=== PATIENT | female | born 1960 | race African-American/Black ===

== ENCOUNTER 2022-03-17 06:01 | Day surgery (SDC) | payer BC ==
[2022-02-24 16:44] VITALS: BMI 42.9
[2022-03-17] MEDS ORDERED: FENTANYL CITRATE/PF 50 MCG/ML VIAL ONE (07:29)
[2022-03-17] MEDS ORDERED: BUPIVACAINE HCL/PF 0.5% (5MG/ML) 10 ML VIAL ONE (07:29)
[2022-03-17] MEDS ORDERED: MIDAZOLAM HCL 2 MG/2 ML SINGLE DOSE VIAL ONE (07:29)
[2022-03-17] MEDS ORDERED: BUPIVACAINE LIPOSOME/PF (EXPAREL) 266 MG/20 ML VIAL ONE (07:29)
[2022-03-17] MEDS ORDERED: LIDOCAINE HCL 2% (20ML MULTI-DOSE VIAL) ONE (08:57)
[2022-03-17] MEDS ORDERED: ceFAZolin SODIUM 1 GM VIAL ONE ×4 (09:14→22:55)
[2022-03-17] MEDS ORDERED: TRANEXAMIC ACID 1000 MG/10 ML VIAL ONE ×2 (09:17→12:06)
[2022-03-17] MEDS ORDERED: ONDANSETRON 4 MG/2 ML VIAL ONE (09:18)
[2022-03-17] MEDS ORDERED: DEXAMETHASONE SOD PHOSPHATE 4 MG/1 ML VIAL ONE (09:18)
[2022-03-17] MEDS ORDERED: PROPOFOL 20 ML ONE ×2 (09:26)
[2022-03-17] MEDS ORDERED: VANCOMYCIN 1,000 MG VIAL (RESTRICTED TO ID ONLY) ONE (09:29)
[2022-03-17] MEDS ORDERED: MAGNESIUM HYDROX 2400MG/30ML ORAL SUSPENSION 30 ML CUP PO PRN (12:28)
[2022-03-17] MEDS ORDERED: ONDANSETRON 4 MG/2 ML VIAL IVPUSH PRN (12:28)
[2022-03-17] MEDS ORDERED: ACETAMINOPHEN INJECTION 100 ML IVPB ONE (12:28)
[2022-03-17] MEDS ORDERED: KETOROLAC TROMETHAMINE 30 MG/1 ML VIAL ONE (12:28)
[2022-03-17] MEDS ORDERED: MAG HYDROX/AL HYDROX/SIMETH 30 ML UNIT-DOSE CUP PO PRN (12:28)
[2022-03-17] MEDS: KETOROLAC TROMETHAMINE 30 MG/1 ML VIAL IVPUSH SCH ×2 (12:30→18:30)
[2022-03-17] MEDS ORDERED: LACTATED RINGERS SOLUTION 1,000 ML IV SCH (12:30)
[2022-03-17] MEDS ORDERED: oxyCODONE HCL 5 MG TABLET PO PRN (13:00)
[2022-03-17] MEDS ORDERED: ACETAMINOPHEN 1000 MG/100 ML BAG IVPB ONE (14:00)
[2022-03-17] MEDS ORDERED: DEXTROSE 5%-WATER - 100 ML IVPB ONE ×2 (16:55→22:55)
[2022-03-17] MEDS: CEFAZOLIN 3 GM in DEXTROSE 5%-WATER - 100 ML IVPB SCH ×2 (17:12→23:07)
[2022-03-17] MEDS: ASPIRIN COATED 81 MG TABLET.EC PO SCH (23:03)
[2022-03-17] MEDS: SENNOSIDES/DOCUSATE COMBO (SENNA PLUS) TABLET (UD) PO SCH (23:04)
[2022-03-17] MEDS: CELECOXIB 200 MG CAPSULE PO SCH (23:04)
[2022-03-17] MEDS: ACETAMINOPHEN 500 MG TABLET (FP) PO SCH (23:04)
[2022-03-17] MEDS: oxyCODONE HCL 10 MG SUSTAINED ACTING TABLET PO SCH (23:05)
[2022-03-18] MEDS ORDERED: DEXTROSE 5%-WATER - 100 ML IVPB ONE (04:36)
[2022-03-18] MEDS ORDERED: ceFAZolin SODIUM 1 GM VIAL ONE (04:36)
[2022-03-18] MEDS: ACETAMINOPHEN 500 MG TABLET (FP) PO SCH ×4 (05:07→21:50)
[2022-03-18] MEDS: CEFAZOLIN 3 GM in DEXTROSE 5%-WATER - 100 ML IVPB SCH (05:08)
[2022-03-18 08:07] LABS: CALCIUM 8.4 mg/dl (8.5-10); CREATININE 0.9 mg/dl (0.55-1.3)
[2022-03-18 08:16] LABS: HEMATOCRIT 33.5 % (32.4-45.2); HEMOGLOBIN 11.3 G/dL (10.7-15.3); MCH 31.1 pg (25.7-33.7); MCHC 33.6 g/dl (32.0-36.0); MEAN CELL VOLUME 92.5 fl (80-96); MEAN PLT VOLUME 8.6 fl (7.5-11.1); PLATELET COUNT 251.7 10^3/uL (134-434); RBC 3.62 10^6/uL (3.60-5.2); RDW 13.9 % (11.6-15.6); WHITE BLOOD COUNT 12.8 10^3/uL (4.0-10.8)
[2022-03-18] MEDS: ASPIRIN COATED 81 MG TABLET.EC PO SCH ×2 (09:11→21:50)
[2022-03-18] MEDS: SENNOSIDES/DOCUSATE COMBO (SENNA PLUS) TABLET (UD) PO SCH ×2 (09:11→21:50)
[2022-03-18] MEDS: PANTOPRAZOLE 40 MG TABLET PO SCH (09:13)
[2022-03-18] MEDS: oxyCODONE HCL 10 MG SUSTAINED ACTING TABLET PO SCH ×2 (09:14→21:50)
[2022-03-18] MEDS: CELECOXIB 200 MG CAPSULE PO SCH ×2 (09:15→21:50)
[2022-03-18] MEDS: ATORVASTATIN CA 20 MG TABLET (FP) PO SCH (09:16)
[2022-03-18] MEDS ORDERED: PATIENT'S OWN MEDICATION (NON-FORMULARY) (Losartan/Hydrochlorothiazide [Losartan-Hctz 100- PO SCH (10:00)
[2022-03-18] MEDS: amLODIPine BESYLATE 10 MG TABLET (FP) PO SCH (11:07)
[2022-03-18] MEDS: LOSARTAN 50MG/HCTZ 12.5MG 1 TAB PO SCH (11:08)
[2022-03-19] MEDS: ACETAMINOPHEN 500 MG TABLET (FP) PO SCH ×4 (06:43→19:59)
[2022-03-19] MEDS: oxyCODONE HCL 5 MG TABLET PO PRN ×2 (06:43→19:32)
[2022-03-19 08:03] VITALS: TEMP 98.4
[2022-03-19 08:21] LABS: HEMATOCRIT 30.8 % (32.4-45.2); HEMOGLOBIN 10.6 G/dL (10.7-15.3); MCH 31.9 pg (25.7-33.7); MCHC 34.4 g/dl (32.0-36.0); MEAN CELL VOLUME 92.9 fl (80-96); MEAN PLT VOLUME 8.7 fl (7.5-11.1); PLATELET COUNT 226.1 10^3/uL (134-434); RBC 3.32 10^6/uL (3.60-5.2); RDW 13.9 % (11.6-15.6); WHITE BLOOD COUNT 11.9 10^3/uL (4.0-10.8)
[2022-03-19] MEDS: oxyCODONE HCL 10 MG SUSTAINED ACTING TABLET PO SCH (09:36)
[2022-03-19] MEDS: PANTOPRAZOLE 40 MG TABLET PO SCH (09:37)
[2022-03-19] MEDS: amLODIPine BESYLATE 10 MG TABLET (FP) PO SCH (09:37)
[2022-03-19] MEDS: CELECOXIB 200 MG CAPSULE PO SCH ×2 (09:38→19:59)
[2022-03-19] MEDS: ATORVASTATIN CA 20 MG TABLET (FP) PO SCH (09:39)
[2022-03-19] MEDS: ASPIRIN COATED 81 MG TABLET.EC PO SCH ×2 (09:39→19:59)
[2022-03-19] MEDS: SENNOSIDES/DOCUSATE COMBO (SENNA PLUS) TABLET (UD) PO SCH ×2 (09:40→19:58)
[2022-03-19] MEDS: LOSARTAN 50MG/HCTZ 12.5MG 1 TAB PO SCH (09:40)
[2022-03-19 14:10] VITALS: BP 126/43; PULSE 80
== END 2022-03-19 20:00 | disposition home or self-care (01) ==
LOC: FASUSAT 06:01 → FM/S 13:14 → FASUSAT 03-19 20:00
PROVIDERS: ATTEND Orthopaedic Surgery Orthopaedic Surgery of the Spine
PROC: 0SRD0J9 Replacement of Left Knee Joint with Synthetic Substitute, Cemented, Open Approach (ICD-10-PCS; principal; 2022-03-17 09:49)
DX: M17.12 Unilateral primary osteoarthritis, left knee (principal)
CPT/HCPCS: 27447; C1776; 36415; 73560-TC-LT-FY; 80048; 85027; 88305-TC; 88311-TC; 94760; 97010-GP; 97116-GP; 97161-GP

== ENCOUNTER 2022-08-04 06:29 | Day surgery (SDC) | payer BC ==
[2022-08-02 12:18] VITALS: BMI 42.5
[2022-08-04] MEDS ORDERED: MIDAZOLAM HCL 2 MG/2 ML SINGLE DOSE VIAL ONE (07:02)
[2022-08-04] MEDS ORDERED: PROPOFOL 60 ML ONE (07:02)
[2022-08-04] MEDS ORDERED: BUPIVACAINE LIPOSOME/PF (EXPAREL) 266 MG/20 ML VIAL ONE (08:06)
[2022-08-04] MEDS ORDERED: BUPIVACAINE HCL/PF 0.5% (5 MG/ML) 30 ML VIAL IJ ONE (08:06)
[2022-08-04] MEDS ORDERED: PROPOFOL 20 ML ONE ×3 (09:29→10:52)
[2022-08-04] MEDS ORDERED: ONDANSETRON 4 MG/2 ML VIAL ONE (09:45)
[2022-08-04] MEDS ORDERED: TRANEXAMIC ACID 1000 MG/10 ML VIAL ONE ×2 (09:45→11:10)
[2022-08-04] MEDS ORDERED: KETOROLAC TROMETHAMINE 30 MG/1 ML VIAL ONE (09:45)
[2022-08-04] MEDS ORDERED: PHENYLEPHRINE HCL 10 MG/1 ML SINGLE DOSE VIAL ONE (09:45)
[2022-08-04] MEDS ORDERED: VANCOMYCIN 1,000 MG VIAL (RESTRICTED TO ID ONLY) ONE (09:45)
[2022-08-04] MEDS ORDERED: ceFAZolin SODIUM 1 GM VIAL ONE ×2 (09:45→11:37)
[2022-08-04] MEDS ORDERED: DEXAMETHASONE SOD PHOSPHATE 4 MG/1 ML VIAL ONE (09:45)
[2022-08-04] MEDS ORDERED: MAGNESIUM HYDROX 2400MG/30ML ORAL SUSPENSION 30 ML CUP PO PRN (11:48)
[2022-08-04] MEDS ORDERED: MAG HYDROX/AL HYDROX/SIMETH 30 ML UNIT-DOSE CUP PO PRN (11:48)
[2022-08-04] MEDS ORDERED: ONDANSETRON 4 MG/2 ML VIAL IVPUSH PRN ×2 (11:48→11:49)
[2022-08-04] MEDS ORDERED: ACETAMINOPHEN 1000 MG/100 ML BAG IVPB ONE (11:49)
[2022-08-04] MEDS ORDERED: oxyCODONE HCL 5 MG TABLET PO PRN (11:49)
[2022-08-04] MEDS ORDERED: LACTATED RINGERS SOLUTION 1,000 ML IV SCH ×2 (12:00)
[2022-08-04] MEDS: oxyCODONE HCL 5 MG TABLET PO PRN (16:07)
[2022-08-04] MEDS: KETOROLAC TROMETHAMINE 30 MG/1 ML VIAL IVPUSH SCH ×2 (16:08→21:25)
[2022-08-04] MEDS: CEFAZOLIN 3 GM in DEXTROSE 5%-WATER - 100 ML IVPB SCH ×2 (17:38→23:38)
[2022-08-04] MEDS: ASPIRIN COATED 81 MG TABLET.EC PO SCH (21:24)
[2022-08-04] MEDS: CELECOXIB 200 MG CAPSULE PO SCH (21:24)
[2022-08-04] MEDS: oxyCODONE HCL 10 MG SUSTAINED ACTING TABLET PO SCH (21:25)
[2022-08-04] MEDS: SENNOSIDES/DOCUSATE COMBO (SENNA PLUS) TABLET (UD) PO SCH (21:25)
[2022-08-04] MEDS: ACETAMINOPHEN 500 MG TABLET (FP) PO SCH (23:39)
[2022-08-05] MEDS: CEFAZOLIN 3 GM in DEXTROSE 5%-WATER - 100 ML IVPB SCH (04:24)
[2022-08-05] MEDS: ACETAMINOPHEN 500 MG TABLET (FP) PO SCH ×2 (06:35→19:35)
[2022-08-05] MEDS: oxyCODONE HCL 5 MG TABLET PO PRN ×3 (06:36→19:35)
[2022-08-05 08:08] LABS: CALCIUM 8.4 mg/dl (8.5-10); CREATININE 0.8 mg/dl (0.55-1.3)
[2022-08-05 08:10] LABS: HEMATOCRIT 33.4 % (32.4-45.2); HEMOGLOBIN 11.5 G/dL (10.7-15.3); MCH 30.6 pg (25.7-33.7); MCHC 34.4 g/dl (32.0-36.0); MEAN CELL VOLUME 89.1 fl (80-96); MEAN PLT VOLUME 8.6 fl (7.5-11.1); PLATELET COUNT 258.3 10^3/uL (134-434); RBC 3.75 10^6/uL (3.60-5.2); RDW 14.7 % (11.6-15.6); WHITE BLOOD COUNT 10.1 10^3/uL (4.0-10.8)
[2022-08-05] MEDS: LOSARTAN 50MG/HCTZ 12.5MG 1 TAB PO SCH (09:20)
[2022-08-05] MEDS: SENNOSIDES/DOCUSATE COMBO (SENNA PLUS) TABLET (UD) PO SCH ×2 (09:20→21:18)
[2022-08-05] MEDS: PANTOPRAZOLE 40 MG TABLET PO SCH (09:20)
[2022-08-05] MEDS: ASPIRIN COATED 81 MG TABLET.EC PO SCH ×2 (09:21→21:17)
[2022-08-05] MEDS: amLODIPine BESYLATE 10 MG TABLET (FP) PO SCH (09:21)
[2022-08-05] MEDS: oxyCODONE HCL 10 MG SUSTAINED ACTING TABLET PO SCH ×2 (09:21→21:18)
[2022-08-05] MEDS: CELECOXIB 200 MG CAPSULE PO SCH ×2 (09:21→21:17)
[2022-08-05] MEDS ORDERED: PATIENT'S OWN MEDICATION (NON-FORMULARY) (Losartan/Hydrochlorothiazide [Losartan-Hctz 100- PO SCH (10:00)
[2022-08-05] MEDS ORDERED: ATORVASTATIN CA 20 MG TABLET (FP) PO SCH (22:00)
[2022-08-06] MEDS: ACETAMINOPHEN 500 MG TABLET (FP) PO SCH ×4 (01:26→12:34)
[2022-08-06 08:19] LABS: HEMATOCRIT 30.5 % (32.4-45.2); HEMOGLOBIN 10.7 G/dL (10.7-15.3); MCH 31.4 pg (25.7-33.7); MEAN CELL VOLUME 89.7 fl (80-96); MEAN PLT VOLUME 8.7 fl (7.5-11.1); PLATELET COUNT 234.7 10^3/uL (134-434); RDW 14.6 % (11.6-15.6); WHITE BLOOD COUNT 10.7 10^3/uL (4.0-10.8)
[2022-08-06] MEDS: amLODIPine BESYLATE 10 MG TABLET (FP) PO SCH (09:04)
[2022-08-06] MEDS: CELECOXIB 200 MG CAPSULE PO SCH (09:04)
[2022-08-06] MEDS: PANTOPRAZOLE 40 MG TABLET PO SCH (09:04)
[2022-08-06] MEDS: SENNOSIDES/DOCUSATE COMBO (SENNA PLUS) TABLET (UD) PO SCH (09:05)
[2022-08-06] MEDS: ASPIRIN COATED 81 MG TABLET.EC PO SCH (09:05)
[2022-08-06] MEDS: oxyCODONE HCL 10 MG SUSTAINED ACTING TABLET PO SCH (09:06)
[2022-08-06] MEDS: LOSARTAN 50MG/HCTZ 12.5MG 1 TAB PO SCH (09:06)
[2022-08-06 14:09] VITALS: BP 126/39; PULSE 69; RESP 17; TEMP 98.1
== END 2022-08-06 16:43 | disposition home or self-care (01) ==
LOC: FASUSAT 06:29 → FM/S 13:37 → FASUSAT 08-06 16:43
PROVIDERS: ATTEND Orthopaedic Surgery Orthopaedic Surgery of the Spine
PROC: 0SRC0J9 Replacement of Right Knee Joint with Synthetic Substitute, Cemented, Open Approach (ICD-10-PCS; principal; 2022-08-04 09:12)
DX: M17.11 Unilateral primary osteoarthritis, right knee (principal)
CPT/HCPCS: 27447; C1776; 36415; 73560-TC-RT-FY; 80048; 85027; 88305-TC; 88311-TC; 94760; 97010-GP; 97116-GP; 97162-GP; C1713; C1889